=== PATIENT | female | born 1955 | race African-American/Black ===

== ENCOUNTER 2016-12-26 05:25 | Day surgery (SDC) | payer MEDICAID ==
[2016-12-20 12:50] LABS: BASOPHILS 0.3 % (0.0-2.0); EOSINOPHILS 0.9 % (0-7); HEMATOCRIT 46.5 % (36.0-48.0); HEMOGLOBIN 15.7 g/dL (12-16); IMMATURE GRANULOCYTES 0.5 % (0-5); LYMPHOCYTES 25.2 % (15-50); MCH 31.6 pg (26.0-34.0); MCHC 33.8 g/dL (31.0-37.0); MCV 93.6 fL (80.0-100.0); MEAN PLATELET VOLUME 11.2 fL (7.4-10.4); MONOCYTES 5.7 % (2-11); NEUTROPHILS 67.4 % (40-80); PLATELET COUNT 216 10x3/uL (130-400); RBC 4.97 10x6/uL (4.00-5.40); RDW 13.2 % (11.5-14.5); WBC 14.8 10x3/uL (4.8-10.8)
[2016-12-20 13:02] LABS: ANION GAP 13.5 mmol/L (8-16); CALCIUM 9.6 mg/dL (8.5-10.1); CARBON DIOXIDE 28.2 mmol/L (21.0-32.0); POTASSIUM - SERUM 3.7 mmol/L (3.5-5.1)
[2016-12-20 13:03] LABS: INR 0.91 (0.85-1.17); PROTIME 12.1 SECONDS (11.6-15.0)
[2016-12-20 13:37] LABS: APPEARANCE CLEAR (CLEAR); BILIRUBIN NEGATIVE (NEGATIVE); COLOR YELLOW (YELLOW); GLUCOSE NEGATIVE (NEGATIVE); KETONE NEGATIVE (NEGATIVE); LEUKOCYTE ESTERASE NEGATIVE (NEGATIVE); NITRITE NEGATIVE (NEGATIVE); PROTEIN NEGATIVE (NEGATIVE); UROBILINOGEN NORMAL (NORMAL)
[~2016-12-26] VITALS: Ht 162.6 cm; Wt 63.6 kg
[2016-12-26] VITALS (13 sets, daily range): BP systolic 95–185; BP diastolic 43–80; Ht 162.6 cm; Wt 63.6 kg
[~2016-12-26 05:25] MED LIST: HYDROCODONE-APA1 TAB PO; LEVOTHYROXINE100 MCG PO; OMEPRAZOLE20 M1 PO
--- NOTE | 2016-12-26 08:48 | HP ---
PATIENT: DEBBI CHINCHILLA MEDICAL RECORD: [id number] ACCOUNT: [id number] LOCATION:[facility] : 57 ADMISSION DATE: 12/26/16 HISTORY AND PHYSICAL EXAMINATION CHIEF COMPLAINT: Back pain. HISTORY OF PRESENT ILLNESS: This is a pleasant black female, who presented to our office with complaints of low back pain radiating down into her left lower extremity. She rates her pain 9 out of 10 for the past year. She describes it as sharp, nothing makes it better. It becomes much worse with walking or activity. She was diagnosed with sacroiliitis versus left L5 nerve root compression. She received an SI joint injection on 12/06/2016, it did not help. She presented back on December 20 with worsening pain and surgery has been scheduled. 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 She also wears glasses and has cataracts that have not been removed. PAST SURGICAL HISTORY: Hysterectomy, thyroidectomy. SOCIAL HISTORY: She is single. She smokes half a pack per day and occasional beer. FAMILY DOCTOR: Dr. Hoffman. MEDICATIONS: Omeprazole, levothyroxine, hydrocodone. ALLERGIES: None. REVIEW OF SYSTEMS: She denies any recent chest pain, shortness of breath or weight changes. PHYSICAL EXAMINATION: HEENT: She is normocephalic. Pupils were equal, reactive to light. CHEST: Clear bilaterally to auscultation. HEART: S1 and S2. ABDOMEN: Soft, bowel sounds present. EXTREMITIES: She has a positive left straight leg raise, walks with a slight limp. IMPRESSION: L5 nerve root compression and radiculopathy. PLAN: Left L4-L5 laminectomy and discectomy. The risk and benefits of surgery have been explained to her in detail. Risks include bleeding, failure to relieve symptoms, problems with anesthesia and . Time was allowed for questions, questions were answered. The patient wishes to proceed with surgery. TRANSINT:[id number] Voice Confirmation ID: [id number] DOCUMENT ID: [id number] Dictated By: BETH VILLALOBOS I have interviewed/examined the above patient and agree with these documented findings. HISTORY AND PHYSICAL [id number] DEBBI CHINCHILLA GURJIT,ORACIO Clinton MD at 0848 at 0826 CC: [id number] DICTATION DATE: 12/21/16 1034 CAREER REPRESENTATIVE: 12/21/16 1106 [address] [place] [id number] [place] [id number]
--- NOTE | 2016-12-26 17:00 | NUR ---
HAS COMPLAINTS OF NAUSEA, DID VOMIT 200CC, ZOFRAN GIVEN, HELP NAUSEA
--- NOTE | 2016-12-26 18:49 | NUR ---
RESTING IN BED, PAIN MEDS REQUESTED, GIVEN PER MAR, USING BED GLOVER, DENIES OTHER NEEDS
--- NOTE | 2016-12-26 19:20 | NUR ---
REPORT RECEIVED AND CARE OF PT ASSUMED. ASSISTED PT UP TO USE RESTROOM...AMBULATED WITH ONLY STAND BY ASSIST. BECAME NAUSEATED WHILE ON TOILET AND VOMITED APPROX 100 ML CLEAR EMESIS. COOL CLOTH GIVEN AND ASSISTED BACK TO BED. SCD'S RE-APPLIED. PT FEELING BETTER NOW...WILL GIVE ZOFRAN SOON ORDERED TIME PERMITS. PT DECLINES FOR ME TO CALL FOR ADDITIONAL DOSE OR OTHER NAUSEA MED. WILL MONITOR CLOSLEY FOR NEEDS. CALL LIGHT WITHIN REACH.
--- NOTE | 2016-12-26 21:01 | NUR ---
HS MEDICATION GIVEN. ASSISTED PT UP TO USE RESTROOM...AMBULATING WITH STAND BY ASSIST. WILL CONTINUE TO MONITOR FOR NEEDS.
--- NOTE | 2016-12-26 21:05 | NUR ---
GAVE X2 VANILLA ICE CREAM FOR HS SNACK.
--- NOTE | 2016-12-26 23:05 | NUR ---
PT C/O PAIN COMING BACK STRONG AT 10/10. GAVE MORPHINE 2 MG AND VALIUM IV 5 MG PER PRN ORDER. WILL MONITOR FOR EFFETIVENESS.
--- NOTE | 2016-12-26 23:25 | NUR ---
PT SITTING UP IN BED EATING ICE CREAM...STATES PAIN MUCH LESS SEVERE AT LEVEL 3/10 AT THI ASSESSMENT. WILL CONTINUE TO MONITOR FOR NEEDS.
[2016-12-27] VITALS: BP 107/60
[2016-12-27 04:00] VITALS: BP 116/73
--- NOTE | 2016-12-27 06:05 | NUR ---
ALL NEEDS MET DURING SHIFT. PT STATES SHE IS FEELING MUCH BETTER THIS AM. CONTINUE PLAN OF CARE.
[2016-12-27] MEDS ORDERED: HYDROCODONE-APA1 TAB PO (06:52)
--- NOTE | 2016-12-27 07:15 | NUR ---
REPORT RECEIVED FROM HEATING AND COOLING TECHNICIAN NURSE. CALL LIGHT IN REACH.
[2016-12-27 08:05] VITALS: BP 114/52
--- NOTE | 2016-12-27 08:14 | NUR ---
ASSESSMENT COMPLETED. ZOFRAN 4 MG SIVP PER C/O NAUSEA. CALL LIGHT IN REACH. WILL CONTINUE WITH PLAN OF CARE.
--- NOTE | 2016-12-27 09:00 | NUR ---
IV TO RIGHT AC DC'D WITH TIP INTACT PER STUDENT NURSE. PATIENT NOW AMBULATING IN HOME.
--- NOTE | 2016-12-27 10:51 | NUR ---
DAVID AND SANGEETA PO. DC INSTRUCTIONS EXPLAINED TO PATIENT. VERBALIZED UNDERSTANDING. RX FOR DAVID HANDED TO PATIENT. WAITING ON RIDE HOME.
--- NOTE | 2016-12-27 11:42 | NUR ---
AMBULATING IN ROOM. DC'D TO VEHICLE VIA WC WITH FAMILY.
--- NOTE | 2016-12-27 11:59 | NUR ---
PT SEEN FOR WAITER/WAITRESS INFORMAL NOTE AT 1100. NO COMPLAINTS OF PAIN POST OP LUM ROBBINS AND DID STATE THAT SHE HAD NAUSEA THIS AM BUT NO VOMINTING. INCISION CLEAN DRY AND INTACT. WAITING ON DISCHARGE.
--- NOTE | 2017-01-03 07:12 | OP ---
PATIENT NAME: DEBBI CHINCHILLA MEDICAL RECORD: [id number] :57 LOCATION:[facility] ADMISSION DATE: SURGEON: ORACIO CAGLE MD DATE OF OPERATION: 12/26/2016 PREOPERATIVE DIAGNOSIS: Left L5 radiculopathy. POSTOPERATIVE DIAGNOSIS: Left L5 radiculopathy. PROCEDURES PERFORMED: 1. Left L4 laminotomy and medial facetectomy for left L4-L5 discectomy and nerve root decompression. 2. Use of intraoperative microscope with microdissection techniques. ESTIMATED BLOOD LOSS: 10 cc. SPECIMENS: None. FINDINGS: No durotomy; decompressed nerve root at the conclusion of the procedure. COMPLICATIONS: None apparent. HISTORY OF PRESENT ILLNESS: Debbi Chinchilla is a pleasant 61-year-old female who presented as an outpatient with intractable left lower extremity pain and imaging consistent with a bulging paracentral disc on the left side at L4-L5 with mass effect on the transiting nerve root. I had an extensive discussion with her regarding presentation, imaging findings and risks, benefits and options for continued conservative therapy versus operative intervention in the form of a minimally invasive left L4-L5 discectomy. She ultimately chose to undergo operative intervention and again the risks were discussed with her in detail preoperatively and she freely consented to go forth. DESCRIPTION OF PROCEDURE: Ms. Chinchilla was identified by anesthesia team, transported to operating theater where general endotracheal anesthesia commenced and all appropriate lines and tubes were placed. She was gently transferred over in the prone position. Her arms were placed in superman, chest was on chest bolsters and pressure points were padded. The eyes were accounted for by anesthesia team. The lumbar region was prepped and draped in the usual sterile fashion. A timeout was performed and agreed to by those present. The patient did receive IV antibiotics prior to initiation of procedure. A 22-gauge spinal needle was used to localize a left L4-L5 disc space from a paramedian approach. The incision was infiltrated with lidocaine and a 10 blade was used to carry the level of skin incision down to the lumbodorsal fascia, which was then transected sharply. The initial METRx dilator was used and an operative channel was developed on the left side overlying the L4-L5 disc space and confirmed via lateral fluoroscopy to be in appropriate position. The final tube was locked into place and the microscope was brought on the field and used to the end of the case. A combination of Bovie electrocautery and pituitary rongeurs were used to resect a small amount of muscle and soft tissue overlying the left L4-L5 laminar facet junction. Using a combination of Kerrison rongeurs, curettes and high speed matchstick drill, the left L4 laminotomy and medial facetectomy was performed. The ligamentum flavum was removed and the thecal sac was easily visualized. Bipolar electrocautery was used to cauterize the epidural venous plexus and the thecal sac was retracted slightly medially. The disc space was OPERATIVE REPORT [id number] DEBBI CHINCHILLA uncovered and again lateral fluoroscopy was used to confirm the appropriate level. A cruciate incision in the disc space was made with a 15 blade and a discectomy was carried out with a combination of Noman curettes, dissecting probes and pituitary rongeurs. Dissecting probes were used to confirm nerve root decompression at the conclusion of discectomy. Bipolar electrocautery was used to cauterize the annulotomy site. Copious amount of irrigation was used. Surgiflo hemostatic matrix was instilled in the epidural space and then rinsed away. No appreciable hemorrhage was identified. The tube was retracted and the microscope and no significant muscle bleeding occurred. Fascia was closed with a single 2-0 Vicryl suture and the skin was closed with a running 4-0 subcuticular Monocryl. The sponge and needle counts were correct times 2 at the end of the case. There were no apparent complications. She tolerated the procedure well. Updated the family immediately postoperatively in the outpatient area and answered all their questions. TRANSINT:[id number] Voice Confirmation ID: [id number] DOCUMENT ID: [id number] ORACIO CAGLE MD at 0712 CC: [id number] DICTATION DATE: 12/26/16 0854 LEAD GENERATION SPECIALIST: 12/26/16 1331 [facility] 12/27/16 [place] [id number] [place] [id number]
== END 2016-12-27 11:42 | disposition home or self-care (01) ==
LOC: D.OPS 05:25 → D.PAN 07:30 → D.OPS 07:30 → D.MS 09:42 → D.OPS 12-27 11:42
PROVIDERS: Neurological Surgery
DX: M51.16 Intervertebral disc disorders with radiculopathy, lumbar region (principal); I69.811 Memory deficit following other cerebrovascular disease; F17.210 Nicotine dependence, cigarettes, uncomplicated; Z79.891 Long term (current) use of opiate analgesic; Z79.899 Other long term (current) drug therapy